=== PATIENT | male | born 1965 | race Caucasian/White ===

== ENCOUNTER 2018-01-24 19:55 | Inpatient (IN) | payer SELFPAY ==
[~2018-01-24] VITALS: Ht 182.9 cm; Wt 108.9 kg
[2018-01-24] MEDS ORDERED: NACL 0.9% 1,000 ML IV ONE (19:58)
[2018-01-24 20:00] VITALS: BP_SYST 147
[2018-01-24] MEDS ORDERED: ASPIRIN 81 MG TAB.CHEW PO ONE (20:00)
[2018-01-24 20:27] LABS: MONOCYTES # (AUTO) 0.5 K/uL (0.0-1.0)
[2018-01-24 20:37] LABS: BASOPHILS # (AUTO) 0.1 K/uL (0.0-0.2); EOSINOPHILS # (AUTO) 0.1 K/uL (0.0-0.4); EOSINOPHILS % (AUTO) 1.6 % (0.0-4.0); HEMATOCRIT 42.4 % (36-54); HEMOGLOBIN 14.2 g/dL (14.0-18.0); LYMPHOCYTES # (AUTO) 3.7 K/uL (1.0-5.5); LYMPHOCYTES % (AUTO) 40.7 % (20.5-51.5); MEAN CORPUSCULAR HEMOGLOBIN 33 pg (27-31); MEAN CORPUSCULAR HGB CONC 34 % (32-36); MEAN CORPUSCULAR VOLUME 98 fL (79.0-98.0); MONOCYTES % (AUTO) 5.7 % (1.7-9.3); NEUTROPHILS # (AUTO) 4.8 K/uL (1.8-7.7); PLATELET COUNT (AUTO) 275 K/uL (130-430); RED BLOOD CELL COUNT(AUTO) 4.33 MIL/uL (4.2-6.2); RED CELL DISTRIBUTION WIDTH 12.5 % (9.0-15.0); WHITE BLOOD COUNT (AUTO) 9.2 K/uL (4.8-10.8)
[2018-01-24 20:44] LABS: CALCIUM 9.1 mg/dL (8.4-11.0); CREATININE 0.95 mg/dL (0.55-1.30); POTASSIUM 3.9 mmol/L (3.5-5.1)
[2018-01-24 20:46] LABS: PROTHROMBIN TIME 10.1 SECS (9.5-12.5)
[2018-01-24 20:49] LABS: ALBUMIN 3.7 g/dL (3.4-4.8); TOTAL BILIRUBIN 0.3 mg/dL (0.0-1.0)
[2018-01-24] MEDS ORDERED: NITROGLYCERIN 0.4 MG TAB.SUBL SL ONE (22:15)
[2018-01-24] MEDS ORDERED: MORPHINE 4 MG/ML INJ. SYRINGE IVP ONE (22:15)
[2018-01-24] MEDS ORDERED: VALS80TA2 PO (23:44)
[2018-01-24] MEDS ORDERED: LEVO137T2 PO (23:44)
[2018-01-24] MEDS ORDERED: ALBMDI INH (23:49)
[2018-01-24] MEDS ORDERED: LIP80 PO (23:49)
[2018-01-24] MEDS ORDERED: METO25TA6 PO (23:49)
[2018-01-24] MEDS ORDERED: ASPI-1063 PO (23:49)
[2018-01-25] VITALS (9 sets, daily range): BP systolic 117–146
[2018-01-25] MEDS ORDERED: ALBUTEROL SULFATE 0.083% 2.5 MG/3 ML VIAL.NEB INH PRN (00:15)
[2018-01-25] MEDS: ACETAMINOPHEN 325 MG TABLET PO PRN ×4 (00:47→21:44)
[2018-01-25] MEDS: TEMAZEPAM 15 MG CAPSULE PO PRN ×2 (00:48→21:01)
[2018-01-25] MEDS: ENOXAPARIN SODIUM 40 MG/0.4 ML SYRINGE SUBCUT SCH (09:00)
[2018-01-25] MEDS: ASPIRIN 81 MG TABLET(ECOTRIN) PO SCH (09:03)
[2018-01-25] MEDS: METOPROLOL TARTRATE 25 MG TABLET PO SCH ×2 (09:04→21:00)
[2018-01-25] MEDS: LEVOTHYROXINE SODIUM 0.137 MG TABLET PO SCH (09:40)
[2018-01-25] MEDS: NITROGLYCERIN 0.4 MG TAB.SUBL SL PRN ×2 (14:30→21:45)
[2018-01-25] MEDS ORDERED: VALSARTAN 80 MG TABLET (DIOVAN) PO SCH (18:00)
[2018-01-25] MEDS ORDERED: NICOTINE 21 MG/24 HR PATCH.TD24 TD SCH (21:00)
[2018-01-25] MEDS ORDERED: ATORVASTATIN 20 MG TABLET PO SCH (21:00)
[2018-01-26 00:34] VITALS: BP_SYST 128
[2018-01-26] MEDS ORDERED: NICOTINE 21 MG/24 HR PATCH.TD24 TD SCH ×2 (02:45→21:00)
[2018-01-26 06:33] LABS: BASOPHILS % (AUTO) 0.5 % (0.0-2.0); EOSINOPHILS # (AUTO) 0.2 K/uL (0.0-0.4); EOSINOPHILS % (AUTO) 2.3 % (0.0-4.0); HEMATOCRIT 45.3 % (36-54); HEMOGLOBIN 15.4 g/dL (14.0-18.0); LYMPHOCYTES % (AUTO) 38.4 % (20.5-51.5); MEAN CORPUSCULAR HEMOGLOBIN 33 pg (27-31); MEAN CORPUSCULAR HGB CONC 34 % (32-36); MEAN CORPUSCULAR VOLUME 98 fL (79.0-98.0); MONOCYTES # (AUTO) 0.4 K/uL (0.0-1.0); MONOCYTES % (AUTO) 5.7 % (1.7-9.3); NEUTROPHILS # (AUTO) 4.2 K/uL (1.8-7.7); NEUTROPHILS % (AUTO) 53.1 % (40.0-70.0); PLATELET COUNT (AUTO) 260 K/uL (130-430); RED BLOOD CELL COUNT(AUTO) 4.61 MIL/uL (4.2-6.2); RED CELL DISTRIBUTION WIDTH 12.6 % (9.0-15.0); WHITE BLOOD COUNT (AUTO) 7.9 K/uL (4.8-10.8)
[2018-01-26 06:47] LABS: ANION GAP 9 (5-15); CALCIUM 8.6 mg/dL (8.4-11.0); CHLORIDE 107 mmol/L (98-107); CREATININE 0.85 mg/dL (0.55-1.30); GLUCOSE 109 mg/dL (70-99); POTASSIUM 3.6 mmol/L (3.5-5.1); SODIUM SERUM 141 mmol/L (136-145); UREA NITROGEN, BLOOD 9 mg/dL (8-21)
[2018-01-26 06:55] LABS: GFR AFRICAN AMERICAN 123 mL/min (>90)
[2018-01-26 08:00] VITALS: BP_SYST 146
[2018-01-26] MEDS: ENOXAPARIN SODIUM 40 MG/0.4 ML SYRINGE SUBCUT SCH (09:00)
[2018-01-26] MEDS ORDERED: REGADENOSON 0.4 MG/5 ML SYRINGE IVP ONE (09:30)
[2018-01-26] MEDS: ASPIRIN 81 MG TABLET(ECOTRIN) PO SCH (11:20)
[2018-01-26] MEDS: LEVOTHYROXINE SODIUM 0.137 MG TABLET PO SCH (11:22)
[2018-01-26] MEDS: METOPROLOL TARTRATE 25 MG TABLET PO SCH (11:23)
[2018-01-26 12:50] VITALS: BP_SYST 123
[2018-01-26 14:14] VITALS: BP_SYST 126
== END 2018-01-26 15:00 | disposition home or self-care (01) | DRG 392 ==
LOC: SED 19:55 → STU 23:32
PROVIDERS: ADMIT Family Medicine; ATTEND Family Medicine
DX: K21.9 Gastro-esophageal reflux disease without esophagitis (principal); E03.9 Hypothyroidism, unspecified; E78.5 Hyperlipidemia, unspecified; I25.10 Atherosclerotic heart disease of native coronary artery without angina pectoris; J45.909 Unspecified asthma, uncomplicated; I10 Essential (primary) hypertension; F17.200 Nicotine dependence, unspecified, uncomplicated; E66.9 Obesity, unspecified; Z68.32 Body mass index [BMI] 32.0-32.9, adult; I25.2 Old myocardial infarction; Z95.1 Presence of aortocoronary bypass graft
CPT/HCPCS: 36415; 71045; 80048; 80053; 82550-TC; 83690-TC; 84484; 85025; 85610-TC; 85730-TC; 93005; 93017; 93306; 96361; 96374; 99285; A9500; J1650; J2270; J2785; J7030